=== PATIENT | female | born 1940 | race Caucasian/White ===

== ENCOUNTER 2022-12-03 06:01 | Day surgery (SDC) | payer MEDICARE, BC, SELFPAY ==
[2022-12-03] MEDS: LACTATED RINGERS 1000 ML 1,000 ML 100 ML IV (05:50)
--- OUTSIDE RECORDS SUMMARY | 2022-12-03 06:03 | XMS_ITS | Continuity of Care Document ---
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 Federal Name Role Phone Angeline Barrera Unavailable Unavail able Allergies, Adverse Reactions, Alerts Substance Reaction Status Criticality No Known Allergies Active No Inform ation Medications Medication Instructions Dosage Effective Dates (start - stop) Status Comments PREDNISONE INTENSOL (unknown strength) Not Available - Active SOLTAMOX (unknown strength) Not Available - Active EFFEXOR XR (unknown strength) Not Available - Active ASPIRIN (unknown strength) Not Available - Active VITAMIN D2 (unknown strength) Not Available - Active Procedures Procedure Date Office/Outpatient Visit,[facility] [place] 2014 Advance Directives Directive Yes / No Effective Date File Name No Information Encounters Encounter Description Practice Location Reason(s) For Visit Diagnoses Date Provider Providers Copied on Encounter [facility], [address], [place], [id number], [place] tel:[phone] [facility] No Information 6 Jazmine Marcus. [facility], [address] [place] [address], [address], [place], [id number], [place]. tel:[phone] Office/Outpat ient Visit,[facility], [address], [place], [id number], [place] tel:[phone] [facility] [place] Spinal stenosis of lumbar region with neurogenic claudication 5 Neiliscio Angeline. [facility], [address] [place] [address], [address], [place], [id number], [place]. tel:[phone] Referring Provider: Adrienne Tabraes [address], [address]. tel:[phone] Family History Family Member Type Diagnosis Age At Onset No Information Payers Payer name Insurance type Covered green party ID Authoriza tion(s) No Information Social History Type Description Quantity Date Captured Comments Sex Female Smoking Status No Information Chief Complaint And Reason For Visit No Information Reason For Referral Reason For Referral No Information History Of Present Illness Encounter Date Complaint History Of Prese nt Illness No Information Functional Status Date Functional Assessmen t No Information Instructions Date Instruction Additional Infor mation No Information Assessments Type Assessment Date No Information Patient Care Teams Name Effective Dates (start - stop) Status Members No Information
--- OUTSIDE RECORDS SUMMARY | 2022-12-03 06:04 | XMS_ITS | Continuity of Care Document ---
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 [facility], [address] [place] [address], [address], [place], [id number], [place]. tel:[phone] Office/Outpat ient Visit,[facility], [address], [place], [id number], [place] tel:[phone] [facility] [place] Sp[facility] stenosis of lumbar region with neurogenic claudication 5 Neiliscio Angeline. [facility], [address] [place] [address], [address], [place], [id number], [place]. tel:[phone] Referring Provider: Adrienne Tabares [address], [address]. tel:[phone] Family History Family Member Type Diagnosis Age At Onset No Information Payers Payer name Insurance type Covered libertarian ID Authoriza tion(s) No Information Social History [...]
[2022-12-03 06:11] VITALS: BMI 32.4
[2022-12-03 06:40] VITALS: BP 175/65; PULSE 72; RESP 18; TEMP 36.6; O2SAT 93
[2022-12-03] MEDS: SODIUM CHLORIDE 0.9 % (FLUSH) 10 ML SYRINGE IVF (06:42)
--- NOTE | 2022-12-03 06:43 | SUR.PREOP ---
Lab here for type and screen
--- NOTE | 2022-12-03 07:10 | W.PM.H&PU ---
History & Physical Update History & Physical Update H&P Reviewed and patient assessed: No changes noted H&P Updates: Preoperative diagnosis: Postmenopausal woman with thickened endometrial stripe. Cervical erythema. Planned procedures: Hysteroscopy, possible polypectomy, dilation and curettage. Possible cervical biopsy. Physical exam: General: No acute distress Psych: Alert and oriented x3, full affect HEENT: Normocephalic, atraumatic Heart: Regular rate and rhythm, no murmur rub or gallop Lungs: Clear to auscultation bilaterally Labs: Type and screen pending Endometrial biopsy from a clinic visit showing scant atrophic endometrium
[2022-12-03] MEDS: LIDOCAINE 1% MDV 20 ML INJECTION (07:48)
--- NOTE | 2022-12-03 07:56 | W.ANESCHARGE ---
Anesthesia Charges Start Date/Time Anesthesia Start Date: 12/03/22 Anesthesia Start Time: 07:27 Stop Date/Time Anesthesia Stop Date: 12/03/22 Anesthesia Stop Time: 08:11 Summary Extremes of Age - Over 70 or under 1: MDA
[2022-12-03 08:14] VITALS: BP 163/63; PULSE 65; RESP 16; TEMP 37; O2SAT 94
[2022-12-03 08:18] VITALS: BP 183/68; PULSE 61; RESP 16; O2SAT 92
[2022-12-03 08:30] VITALS: BP 182/67; PULSE 66; RESP 16; O2SAT 92
--- NOTE | 2022-12-03 08:32 | W.ANESCHARGE ---
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
[2022-12-03 08:45] VITALS: BP 168/82; PULSE 64; RESP 16; O2SAT 94
--- NOTE | 2022-12-03 08:46 | W.PM.GYNPROC ---
Procedure Note Date of procedure: 12/03/22 Pre-op diagnosis: 1. Thickened endometrium on ultrasound, 2. Cervical inflammation Post-op diagnosis: other (Endometrial polyp, otherwise as above) Procedure: 1. Cervical biopsy 2. Hysteroscopy, polypectomy, dilation and curettage Anesthesia: MAC Complications: None Surgeon: Evon Martínez MD Estimated blood loss (mL): 5 IV fluids (mL): 250 Urine Output (mL): 5 Pathology: specimen obtained, sent to pathology (1. Cervical biopsy, 2. endometrial curettings) Condition: stable Disposition: same day Findings: 1. On exam under anesthesia, uterus was mobile and without palpable masses. Cervix appeared diffusely inflamed with dilated blood vessels. 2. Upon hysteroscopy, survey of the cavity revealed an endometrial polyp greater than 1 cm in greatest dimension. Background endometrium was thin with diffuse calcifications. Cavity shape was normal. Tubal ostia were not visualized. Saline deficit: 150 cc Procedure Description: Patient was taken to the operating room with IV running. She was positioned in dorsal lithotomy position with her legs fully supported in Yellofin stirrups. Monitored anesthesia care was administered. She was prepped and draped in the usual sterile fashion. Exam under anesthesia was performed for the above-noted findings. Speculum was inserted. Cervix visualized and grasped along the anterior lip with a single-tooth tenaculum. Tischler biopsy forceps was used to sample posterior lip of cervix. Cervix was serially dilated to accommodate the TRUCLEAR hysteroscope. This was assembled with saline inflow and outflow in place. The line was flushed of bubbles. The hysteroscope was advanced through the cervix into the endometrial cavity for the above noted findings. The tissue morcellator was then inserted through the operating channel. Window lock was performed. Under direct visualization, the endometrial cavity was circumferentially curetted with the tissue morcellator. The hysteroscope and morcellator were then removed from the uterus. Tenaculum was removed from the anterior lip of cervix. Hemostasis was noted. Patient tolerated procedure well. She was taken to recovery area in stable condition.
== END 2022-12-03 09:27 | disposition home or self-care (01) ==
PROVIDERS: PCP Physician Assistant Medical; Visit Provider Obstetrics & Gynecology
PROC: 0UDB8ZZ Extraction of Endometrium, Via Natural or Artificial Opening Endoscopic (ICD-10-PCS; CPT 58558; principal; 2022-12-03 07:15)
DX: R93.89 Abnormal findings on diagnostic imaging of other specified body structures (principal); N84.0 Polyp of corpus uteri; N72 Inflammatory disease of cervix uteri
CPT/HCPCS: 58558; 57500; 00952; 36415; 81025; 82962; 86850; 86900; 86901; 88305; 99100; J1100; J1885; J2405; J2704; J3010; J7120